=== PATIENT | female | born 1950 | race Caucasian/White ===

== ENCOUNTER 2019-02-24 04:43 | Emergency (ER) | payer OTHER ==
[~2019-02-24] VITALS: Ht 162.6 cm; Wt 63.5 kg
[~2019-02-24 04:43] MED LIST: PERCOCET 7.5-51 EACH PO; ZOFRAN ODT4 MG PO
[2019-02-24] MEDS ORDERED: ASA81BEC PO (04:51)
[2019-02-24] MEDS ORDERED: ATORVASTATIN CA10 MG PO (04:51)
[2019-02-24] MEDS ORDERED: FOSAMAX 70 MG T70 MG PO (04:51)
[2019-02-24 05:29] LABS: URINE BILIRUBIN NEGATIVE (Negative); URINE BLOOD 3+ (Negative); URINE CLARITY CLEAR; URINE COLOR YELLOW; URINE GLUCOSE-RANDOM* NEGATIVE (Negative); URINE KETONES 1+ (Negative); URINE LEUKOCYTES-REFLEX TRACE (Negative); URINE NITRITE-REFLEX NEGATIVE (Negative); URINE PROTEIN (DIPSTICK) NEGATIVE (Negative); URINE SPECIFIC GRAVITY 1.025 (1.005-1.035); URINE UROBILINOGEN 0.2 E.U./dl (0.2-1.0)
[2019-02-24 05:35] LABS: ABSOLUTE NEUTROPHILS 13.2 thou/uL (1.4-8.2); BASOPHILS 0.2 % (0.0-2.0); HEMATOCRIT 45.3 % (37.0-47.0); LYMPHOCYTES 6.8 % (24.0-44.0); MCH 31.9 pg (26.0-34.0); MCHC 33.2 g/dL (28.0-37.0); MCV 95.8 fL (80.0-100.0); MONOCYTES 6.7 % (1.0-8.0); PLATELET COUNT 256 thou/uL (150-400); POLYS 86.3 % (36.0-66.0); RBC 4.72 mil/uL (4.20-5.00); RDW 13.1 % (10.5-14.5); WBC 15.2 thou/uL (4.0-11.0)
[2019-02-24 05:50] LABS: CREATININE 1.2 mg/dL (0.6-1.0); MAGNESIUM 2.2 mg/dL (1.8-2.4); POTASSIUM 4.1 mmol/L (3.5-5.1)
[2019-02-24 05:58] LABS: CALCIUM 9.7 mg/dL (8.5-10.1)
[2019-02-24 06:05] LABS: BACTERIA-REFLEX 1-9 Few /HPF (None Seen); CASTS None Seen /LPF (None Seen); CRYSTALS None Seen /LPF (None Seen); MUCUS 0-3 Light strn/LPF (None Seen); SQUAMOUS 0-3 Few /LPF (0-3); URINE RBC 0-2 Rare /HPF (0-2); URINE WBC-REFLEX 0-5 Rare /HPF (0-5)
[2019-02-24] MEDS ORDERED: FLOMAX0.4 MG PO (07:31)
[2019-02-24] MEDS ORDERED: NORCO 5-325 TA1 EAC1 PO (07:31)
[2019-02-24] MEDS ORDERED: ZOFRAN ODT4 MG PO (07:31)
[2019-02-24 07:50] VITALS: BP 121/49
== END 2019-02-24 07:54 | disposition home or self-care (01) ==
LOC: ER 04:43
PROVIDERS: Emergency Medicine
DX: R10.32 Left lower quadrant pain (principal); E78.00 Pure hypercholesterolemia, unspecified; N20.1 Calculus of ureter; Z87.442 Personal history of urinary calculi; Z88.2 Allergy status to sulfonamides